=== PATIENT | male | born 2000 | race Caucasian/White ===

== ENCOUNTER 2024-09-09 19:48 | Emergency (ER) | payer OTHER, SELFPAY ==
--- NOTE | ~2024-09-09 | XR_ITS ---
CLINICAL HISTORY: pain 1 view abdomen Comparison: None Findings: No pneumoperitoneum or pneumatosis. Small stool burden. No abnormal calcifications. No acute fractures. IMPRESSION: Normal bowel gas pattern This document has been electronically signed by: Deidra Alexis MD on 09/09/2024 20:48:21
[2024-09-09 19:50] VITALS: BP 146/97; PULSE 72; RESP 16; TEMP 36.6; O2SAT 100; BMI 33.5
--- NOTE | 2024-09-09 19:51 | ED.GENADULT ---
HPI - General Adult General Chief complaint: Abdominal Pain Stated complaint: constipation Time Seen by Provider: 09/09/24 22:15 History of Present Illness ED Provider: Anderson BINGHAM narrative: The patient is a 23-year-old who describes himself who is generally healthy. He says that over the last month he feels he has not really been having good bowel movements. He has not feel he has had much in the way of stools for 2 weeks Related Data Previous Rx's ?Medication ?Instructions ?Recorded famotidine 40 mg tablet 40 mg PO DAILY #30 tabs 09/09/24 ondansetron 4 mg disintegrating 4 mg PO Q6H PRN nausea and 09/09/24 tablet vomiting #10 tabs Allergies Allergy/AdvReac Type Severity Reaction Status Date / Time No Known Allergies Allergy Verified 09/09/24 19:53 Review of Systems Review of Systems: Yes all other systems are reviewed and are negative [facility] Social History Social History Unable to assess alcohol history related to: Unknown Use of substances other than those prescribed or required for medical reasons: Unknown Advance Directives: No Advance Directives Information Provided: No Do you have a plan to hurt others: No Plan Physical Exam ED Vital Signs: Vital Signs - 24 hr 09/09/24 19:50 09/09/24 21:57 09/09/24 22:49 Temperature 97.8 F 98.2 F 98.2 F Pulse Rate 72 73 73 Respiratory Rate 16 18 18 Blood Pressure 146/97 H 155/89 H 155/89 H Pulse Oximetry 100 99 99 Oxygen Delivery Method Room Air Room Air Room Air BMI result Body Mass Index 33.5 Const Other: The patient is a 23-year-old male who was awake and alert and does not seem in acute distress. Orientation/consciousness: patient oriented x3 HENMT Other: Face is symmetrical, mucous membranes moist Eyes General: appearance normal, both eyes and all related structures Neck Neck: Yes normal visual inspection and Yes full ROM Resp Effort & Inspection: normal respiratory effort Auscultation: clear to auscultation bilaterally Cardio Rate: regular rate Rhythm: regular rhythm Heart sounds: S1 normal heart sound present and S2 normal heart sound present GI Other: The abdomen is soft. He reports tenderness in the left lower quadrant. Digital rectal exam revealed no fecal impaction. No significant amount of stool in the rectum. Skin General skin exam: no rashes or lesions noted Neuro General: patient oriented x3, gait normal, tone normal, moves all extremities, no focal motor deficits and CN's II-XI intact bilaterally Extrem General: Yes no pedal edema Course Course Course Narrative: RME, this is a rapid medical exam performed by Sly Woods please refer to primary provider for complete H&P- 23 year old male with history of asthma presents for evaluation of abdominal pain and constipation. He reports that he has not had a bowel movement in 2 weeks aside from a small amount of watery stool. Denies any history of abdominal surgeries. He has had issues with constipation in the past that responded well to MiraLax. Plan for labs and a KUB x-ray Medications Administered Discontinued Medications Generic Name Dose Route Start Last Admin Trade Name Freq PRN Reason Stop Dose Admin Sucralfate 1 gm 09/09/24 22:39 09/09/24 22:46 Sucralfate Oral Suspension 1 Gm/10 Ml Oral.Susp PO 09/09/24 22:40 1 gm ONCE ONE Administration Medical Decision Making Medical Decision Making [facility] Narrative: The patient is a 23-year-old who seems to be concerned he might be constipated. He feels he has not had a good bowel movement for a long time and describes having loose stools. He has a apparently been taking Colace and enemas. He does not describe any symptoms of infection. He apparently has had some postprandial nausea and today he vomited after eating. Clinically the patient does not look unwell. He has no surgical history. I do not think his description of the symptoms he is experiencing is likely consistent with an acute surgical process. A KUB shows no significant amount of stool in his colon. Given the patient's exam in his history and his labs I think a CAT scan of the abdomen and pelvis would be unlikely to be helpful. Perhaps the patient has some degree of gastritis. He will be started on famotidine daily. I also will prescribe ondansetron. I suspect the patient may need an upper endoscopy and a colonoscopy. He should follow up with his PCP to continue evaluation of his symptoms as an outpatient as I do not feel he has an acute surgical or other emergency. Lab Data 09/09/24 20:00 09/09/24 20:00 Labs: Lab Results 09/09/24 09/09/24 Range/Units 20:00 20:52 WBC 9.2 (4.8-10.8) X10*3/uL RBC 5.47 (4.60-5.80) X10*6/uL Hgb 15.6 (14.0-18.0) g/dl Hct 45.4 (42.0-52.0) % MCV 83.0 (80.0-98.0) fL MCH 28.5 (27.0-33.0) pg MCHC 34.4 (31.0-36.0) g/dl RDW 11.8 (11.0-16.0) % Plt Count 237 (160-400) X10*3/uL MPV 10.5 (9.4-12.4) fL Immature Gran % (Auto) 0.2 (0.0-0.4) % Neut % (Auto) 52.0 (45-73) % Lymph % (Auto) 37.3 (20-40) % [place] % (Auto) 9.1 (2-11) % Eos % (Auto) 1.1 (0-4) % Baso % (Auto) 0.3 (0-2) % Lymph # (Auto) 3.4 (1.2-4.9) X10*3/uL [place] # (Auto) 0.8 (0.1-1.2) X10*3/uL Eos # (Auto) 0.1 (0.0-0.4) X10*3/uL Baso # (Auto) 0.0 (0.0-0.2) X10*3/uL Abs Immat Gran (auto) 0.02 (0.00-0.03) X10*3/uL Absolute Neuts (auto) 4.8 (2.0-8.3) x10*3/uL Absolute Nucleated RBC 0.000 (0.0-0.012) X10*3/uL Nucleated RBC % (auto) 0.0 (0.0-0.2) /100WBC Sodium 142 (135-145) mmol/L Potassium 3.7 (3.3-5.1) mmol/L Chloride 109 H (96-108) mmol/L Carbon Dioxide 26 (22-29) mmol/L Anion Gap 11 L (12-20) BUN 9 (9-16) mg/dL Creatinine 1.01 (0.5-1.4) mg/dL Estim Creat Clear Calc 145.1 Estimated GFR > 60 Random Glucose 91 (60-115) mg/dL Calcium 8.9 (8.4-10.2) mg/dL Total Bilirubin 1.0 (0.0-1.0) mg/dL AST 29 (5-37) U/L ALT 39 (0-40) U/L Alkaline Phosphatase 88 (39-117) U/L Total Protein 7.3 (6.5-8.0) g/dL Albumin 4.5 (3.5-5.0) g/dL Lipase 16 (8-78) U/L Urine Color Yellow Urine Appearance Clear Urine pH 5.5 (5.0-9.0) Ur Specific [place] 1.020 (1.005-1.025) Urine Protein 30 (1+) H (Neg-Trace) mg/dL Urine Glucose (UA) Negative (Negative) mg/dL Urine Ketones Trace (Negative) mg/dL Urine Blood Negative (Negative) Urine Nitrite Negative (Negative) Ur Leukocyte Esterase Negative (Negative) Urine RBC 0-2 (0-2) /HPF Urine WBC 0-5 (0-5) /HPF Ur Squamous Epith Cells 0-2 (0-2) /HPF Urine Bacteria None Seen (None Seen) Hyaline Casts 0-2 (0-2) /LPF Discharge Plan Discharge Clinical Impression: Nausea & vomiting, Loose stools Patient Disposition: Home, Self-Care Instructions: Gastritis (ED) Additional Instructions: The x-rays you had today do not indicate that you likely have any significant degree of constipation. Your blood testing is very reassuring as well. I do not think you are having an acutely dangerous surgical process. I think you might be having some symptoms from a condition known as gastritis. I have sent a prescription for medication called famotidine. This is an acid reducing medication which might help if you are having gastritis. I have also sent a prescription for medication called ondansetron which you can use as needed for nausea. I think you will likely need to see a associate professor of anthropology to address these symptoms further. Please contact your regular doctor's office on Wednesday to discuss next steps and possible referral to a associate professor of anthropology. I given you the contact information for the [place] [facility] office. Return to the emergency room if significantly worse. Prescriptions: New famotidine 40 mg tablet 40 mg PO DAILY Qty: 30 0RF ondansetron 4 mg tablet,disintegrating 4 mg PO Q6H PRN (Reason: nausea and vomiting) Qty: 10 0RF Referrals: [facility] [Provider Group] (Postprandial nausea and vomiting, frequent loose stool) Alayna Frank PA-C [Primary Care Provider] - (GI symptoms, may need GI referral) Interventions: ED Discharge Assessment Last Done: 09/09/24 22:49 Discharge Date/Time: 09/09/24 22:50 Print Language: Portuguese
[2024-09-09 20:05] LABS: MANUAL DIFF FLAG NO
[2024-09-09 20:06] LABS: Basophils Percent Auto 0.3 % (0-2); Eosinophils Absolute Auto 0.1 X10*3/uL (0.0-0.4); Eosinophils Percent Auto 1.1 % (0-4); Hematocrit 45.4 % (42.0-52.0); Hemoglobin 15.6 g/dl (14.0-18.0); Imm Gran Abs Auto 0.02 X10*3/uL (0.00-0.03); Imm Gran Pct Auto 0.2 % (0.0-0.4); Lymphocytes Absolute Auto 3.4 X10*3/uL (1.2-4.9); Lymphocytes Percent Auto 37.3 % (20-40); Mean Corpuscular HGB Conc 34.4 g/dl (31.0-36.0); Mean Corpuscular Hemoglobin 28.5 pg (27.0-33.0); Mean Platelet Volume 10.5 fL (9.4-12.4); Monocytes Absolute Auto 0.8 X10*3/uL (0.1-1.2); Monocytes Percent Auto 9.1 % (2-11); Neutrophils Absolute Auto 4.8 x10*3/uL (2.0-8.3); Platelet Count 237 X10*3/uL (160-400); Red Blood Count 5.47 X10*6/uL (4.60-5.80); Red Cell Distribution Width 11.8 % (11.0-16.0); White Blood Count 9.2 X10*3/uL (4.8-10.8)
[2024-09-09 20:19] LABS: Alanine Aminotransferase 39 U/L (0-40); Albumin Level 4.5 g/dL (3.5-5.0); Alkaline Phosphatase 88 U/L (39-117); Anion Gap 11 (12-20); Aspartate Amino Transferase 29 U/L (5-37); Blood Urea Nitrogen 9 mg/dL (9-16); Calcium 8.9 mg/dL (8.4-10.2); Carbon Dioxide 26 mmol/L (22-29); Chloride 109 mmol/L (96-108); Creatinine Clr Calc Pharmacy 145.1; Estimated Glomerular Filt Rate > 60; Glucose Random 91 mg/dL (60-115); Lipase 16 U/L (8-78); Potassium 3.7 mmol/L (3.3-5.1); Sodium 142 mmol/L (135-145); Total Protein 7.3 g/dL (6.5-8.0)
[2024-09-09 21:14] LABS: Appearance Urine Clear; Color Urine Yellow; Glucose Urine UA Negative (Negative); Leukocyte Esterase Urine Negative (Negative); Nitrite Urine Negative (Negative); PH 5.5 (5.0-9.0); UMIC TRIGGER UACC YES; Urine Blood Negative (Negative); Urine Ketones Trace mg/dL (Negative); Urine Protein 30 (1+) mg/dL (Neg-Trace)
[2024-09-09 21:16] LABS: Bacteria Urine None Seen (None Seen); Hyaline Casts Urine 0-2 /LPF (0-2); RBC Urine 0-2 /HPF (0-2); Squamous Epithelial Cell Urine 0-2 /HPF (0-2); WBC Urine 0-5 /HPF (0-5)
[2024-09-09 21:57] VITALS: BP 155/89; PULSE 73; RESP 18; TEMP 36.8; O2SAT 99
[2024-09-09] MEDS: Sucralfate Oral Suspension 1 GM/10 ML ORAL.SUSP PO (22:46)
[2024-09-09 22:49] VITALS: BP 155/89; PULSE 73; RESP 18; TEMP 36.8; O2SAT 99
== END 2024-09-09 22:50 | disposition home or self-care (01) ==
PROVIDERS: Physician Assistant; Emergency Provider Emergency Medicine
DX: K59.00 Constipation, unspecified (principal); R11.2 Nausea with vomiting, unspecified; R19.7 Diarrhea, unspecified; R10.2 Pelvic and perineal pain; Z79.899 Other long term (current) drug therapy
CPT/HCPCS: 36415; 74018; 80053; 81001; 83690; 85025; 99283; 99284

== ENCOUNTER → 2024-09-09 19:54 | Outpatient (BNV) | payer SELFPAY | PROVIDERS: Visit Provider Nuclear Medicine | DX: R10.9 Unspecified abdominal pain (principal) | CPT/HCPCS: 74018 ==

== ENCOUNTER → 2024-11-29 00:43 | Outpatient (BNV) | payer OTHER, SELFPAY | PROVIDERS: Visit Provider Radiology Diagnostic Radiology | DX: R06.02 Shortness of breath (principal) | CPT/HCPCS: 71046 ==

== ENCOUNTER 2024-11-29 01:19 | Emergency (ER) | payer OTHER, SELFPAY ==
--- NOTE | ~2024-11-29 | XR_ITS ---
CLINICAL HISTORY: sob 2 view chest x-ray. Comparison: None provided. Findings: No consolidation, pneumothorax, or effusion. Heart size normal. Impression: 1. No acute cardiopulmonary process. No focal pulmonary consolidation. This document has been electronically signed by: Sammy Carlos MD on 11/29/2024 02:43:25
[2024-11-29 01:24] VITALS: BP 125/85; PULSE 88; RESP 20; TEMP 36.9; O2SAT 100; BMI 33.7
[2024-11-29 01:43] LABS: MANUAL DIFF FLAG NO
[2024-11-29 01:44] LABS: Hematocrit 42.4 % (42.0-52.0); Hemoglobin 15.2 g/dl (14.0-18.0); Imm Gran Abs Auto 0.04 X10*3/uL (0.00-0.03); Imm Gran Pct Auto 0.4 % (0.0-0.4); Lymphocytes Absolute Auto 3.4 X10*3/uL (1.2-4.9); Mean Corpuscular HGB Conc 35.8 g/dl (31.0-36.0); Mean Corpuscular Hemoglobin 28.7 pg (27.0-33.0); Mean Corpuscular Volume 80.0 fL (80.0-98.0); NRBC Abs Auto 0.000 X10*3/uL (0.0-0.012); NRBC Pct Auto 0.0 /100WBC (0.0-0.2); Platelet Count 222 X10*3/uL (160-400); Red Blood Count 5.30 X10*6/uL (4.60-5.80); White Blood Count 10.8 X10*3/uL (4.8-10.8)
[2024-11-29 01:58] LABS: IDNOW Serial# 6674DD1D; Strep A Nucleic Acid Negative (Negative)
[2024-11-29 02:01] LABS: Alanine Aminotransferase 71 U/L (0-40); Albumin Level 4.8 g/dL (3.5-5.0); Alkaline Phosphatase 97 U/L (39-117); Anion Gap 13 (12-20); Aspartate Amino Transferase 26 U/L (5-37); Blood Urea Nitrogen 14 mg/dL (9-16); Calcium 9.3 mg/dL (8.4-10.2); Carbon Dioxide 27 mmol/L (22-29); Chloride 104 mmol/L (96-108); Creatinine Clr Calc Pharmacy 136.4; Estimated Glomerular Filt Rate > 60; Lipase 19 U/L (8-78); Potassium 3.4 mmol/L (3.3-5.1); Sodium 141 mmol/L (135-145); Total Protein 7.2 g/dL (6.5-8.0)
[2024-11-29 02:20] LABS: Resp Syncy Virus RNA Qual PCR NEGATIVE (Negative); SARS COV2 PCR INHOUSE NEGATIVE (Negative)
[2024-11-29 02:45] VITALS: BP 115/51; PULSE 81; RESP 16; O2SAT 98
--- NOTE | 2024-11-29 03:17 | PC.NURSE ---
textile chemist alerted by registration that this patient was attempting to leave the department. RN to ER entrance doors where the pt could be seen standing and waiting. He was alert, conversing freely and well appearing overall. The pt stated i'm not just going to sit here . RN apologized for the inconvenience and attempted to encourage the patient to stay but he declined. he is aware that he can return at any time
== END 2024-11-29 03:20 | disposition left against medical advice (07) ==
PROVIDERS: Emergency Provider Emergency Medicine
DX: R06.02 Shortness of breath (principal); Z79.899 Other long term (current) drug therapy; Z03.818 Encounter for observation for suspected exposure to other biological agents ruled out
CPT/HCPCS: 71046; 80053; 83690; 85025; 87637; 87651; 99281; 99284